=== PATIENT | male | born 1985 | race Caucasian/White ===

== ENCOUNTER 2021-02-07 22:04 | Emergency (ER) | payer MEDICAID ==
[~2021-02-07] VITALS: Ht 185.4 cm; Wt 77.1 kg
[2021-02-07 22:11] VITALS: BP_SYST 100
[2021-02-07 22:26] VITALS: BP_SYST 100
== END 2021-02-07 22:26 ==
LOC: SED 22:04
DX: Z02.89 Encounter for other administrative examinations (principal)
CPT/HCPCS: 99283